=== PATIENT | female | born 1965 | race Caucasian/White ===

== ENCOUNTER → 2017-01-28 | Day surgery (SDC) | payer OTHER ==
[2017-01-17 08:38] VITALS: Ht 162.6 cm; Wt 70.5 kg
[~2017-01-28] VITALS: Ht 162.6 cm; Wt 70.5 kg
[~2017-01-28] MED LIST: CALC-51 PO; JNL12021 PO; LIDOCAINE HCL 2% 2 ML VIAL (20MG/ML) ONE; MIDAZOLAM HCL 1 MG/ML 2ML VIAL ONE; MULT-506 PO; PROPOFOL IV EMULSION 10 MG/ML 20 ML VIAL IV ONE; SODIUM CHLORIDE 0.9% 500ML 500 ML IV ONE; SPIR50TA2 PO
--- NOTE | 2017-01-28 15:30 | Endo History and Physical ---
History & Physical Date of Service: Jan 28, 2017. Chief Complaint: Screening Referring Physician: Lv Martinez History of Present Illness 51 yo CF who presents for screening colonoscopy. Past Surgical History Hx Cardiac Surgery: No Hx Internal Defibrillator: No Hx Pacemaker: No Hx Abdominal Surgery: No Hx of Implantable Prosthesis: No Hx Post-Op Nausea and Vomiting: No Hx Cancer Surgery: No Hx Thoracic Surgery: No Hx Orthopedic: No Hx Urinary Tract Surgery: No Family History Polyp Social History Smoking Status: Former Smoker Hx Substance Use: No Hx Alcohol Use: Yes (3-4 DRINKS A WEEK) Allergies Coded Allergies: NO KNOWN DRUG ALLERGIES (Verified Allergy, Unknown, ., 01/17/17) Uncoded Allergies: HONEYDEW (Adverse Reaction, Mild, SCRATCHY THROAT, 04/26/08) Current Medications Reported Home Medications Medications Dose Route/Sig Max Daily Dose Days Date Category Multivitamin (Multivitamins) Tab 1 Tab PO DAILY 01/17/17 Reported [Calcium] 1 Tab PO DAILY 01/17/17 Reported Aldactone (Spironolactone) 50 Mg Tab 50 Mg PO DAILY AFTERNOON 01/17/17 Reported Junel 11/09 (Ethinyl Estradiol/Norethindrone) 1 Ea Tab 1 Tab PO QAM 28 01/17/17 Reported Vital Signs Weight (Kilograms): 70.45 Height (Feet): 5 Height (Inches): 4 Date Time Temp Pulse Resp B/P Pulse Ox O2 Delivery O2 Flow Rate FiO2 01/28/17 14:17 36.4 75 16 137/70 99 Room Air Physical Exam General Appearance: WD/WN, no apparent distress Respiratory/Chest: Auscultation: breath sounds normal Cardiovascular: Heart Auscultation: RRR Abdomen: Bowel Sounds: normal Inspection & Palpation: soft, non-distended, no tenderness, guarding & rebound Assessment and Plan Assessment: 51 yo CF who presents for screening colonoscopy. Plan: Proceed with colonoscopy.
--- NOTE | 2017-01-28 16:17 | Anesthesiology Progress Note ---
Anesthesia Post Op Note Date & Time Jan 28, 2017 at 16:16 Vital Signs Vital Signs Past 12 Hours Date Time Temp Pulse Resp B/P Pulse Ox O2 Delivery O2 Flow Rate FiO2 01/28/17 16:02 80 20 104/50 100 Room Air 01/28/17 14:17 36.4 75 16 137/70 99 Room Air Notes Mental Status: alert / awake / arousable, participated in evaluation Pt Amnestic to Procedure: Yes Nausea / Vomiting: adequately controlled Pain: adequately controlled Airway Patency, RR, SpO2: stable & adequate BP & HR: stable & adequate Hydration State: stable & adequate Anesthetic Complications: no major complications apparent
--- NOTE | 2017-01-28 16:18 | Discharge Instructions ---
Endoscopy Patient Instructions Date / Procedure(s) Performed Jan 28, 2017. Colonoscopy Allergy Information Coded Allergies: NO KNOWN DRUG ALLERGIES (Verified Allergy, Unknown, ., 01/17/17) Uncoded Allergies: HONEYDEW (Adverse Reaction, Mild, SCRATCHY THROAT, 04/26/08) Discharge Date / Findings Jan 28, 2017. Colon polyps Internal hemorrhoids Medication Instructions OK to resume all medications today as prescribed Provider Instructions Activity Restrictions - No exercising or heavy lifting for 24 hours. - Do not drink alcohol the day of the procedure. - Do not drive a car or operate machinery until the day after the procedure. - Do not make any important decisions or sign important papers in 24 hours after the procedure. Following Day: - Return to full activity which may include returning to work/school. Diet Start your diet with liquids and light foods (jello, soup, juice, toast). Then eat your usual diet if not nauseated. Treatment For Common After Affects For mild abdominal pain, bloating, or excessive gas: - Rest - Eat lightly - Lie on right side Follow-Up Information Follow-up with Lv Martinez as scheduled Anesthesia Information What You Should Know You have had a procedure that required some medicine to reduce anxiety and discomfort. This treatment is called moderate sedation. After receiving the treatment, you may be sleepy, but you will be able to breathe on your own. The effects of the treatment may last for several hours. Follow these instructions along with Activity/Diet recommendations noted above: * Do NOT do anything where dizziness or clumsiness would be dangerous. * Rest quietly at home today, then you can be up and about tomorrow. * Have a responsible person stay with you the rest of today. * You may have had an I.V. today. If so, you may take the dressing off later today. Recommendations Call your doctor if: * Trouble breathing * Continuous vomiting for more than 24 hours * Temperature above 101 degrees * Severe abdominal pain or bloating * Pain not relieved by pain medicine ordered * There is increased drainage or redness from any incision * A large amount of rectal bleeding greater than 2-3 tablespoons. (If you had a polyp/s removed or have hemorrhoids, a small amount of blood - from the rectum is to be expected.) * You have any unanswered questions or concerns. IN THE EVENT OF A SERIOUS EMERGENCY, GO TO THE NEAREST EMERGENCY ROOM Your discharge instructions were prepared by provider Chris Lezama. Patient Instructions Signature Page Lorencata Damon Patient (or Guardian) Signature/Date: I have read and understand the instructions given to me by my caregivers. Caregiver/RN/Doctor Signature/Date: The above-named patient and/or guardian has received patient instructions on this date. + Original Patient Signature Page (only) stays with chart. Please make copy for patient.
--- NOTE | 2017-01-28 16:23 | GI REPORT ---
Procedure Date: 01/28/2017 3:22 PM Procedure: Colonoscopy Indications: Screening for colorectal malignant neoplasm Medicines: Monitored Anesthesia Care Complications: No immediate complications. Estimated Blood Loss: Estimated blood loss: none. Procedure: Pre-Anesthesia Assessment: - Prior to the procedure, a History and Physical was performed, and patient medications and allergies were reviewed. The patient's tolerance of previous anesthesia was also reviewed. The risks and benefits of the procedure and the sedation options and risks were discussed with the patient. All questions were answered, and informed consent was obtained. Prior Anticoagulants: The patient has taken no previous anticoagulant or antiplatelet agents. ASA Grade Assessment: I - A normal, healthy patient. After reviewing the risks and benefits, the patient was deemed in satisfactory condition to undergo the procedure. After I obtained informed consent, the scope was passed under direct vision. Throughout the procedure, the patient's blood pressure, pulse, and oxygen saturations were monitored continuously. The scope was introduced through the anus and advanced to the terminal ileum. The colonoscopy was performed without difficulty. The patient tolerated the procedure well. The quality of the bowel preparation was good. The terminal ileum, ileocecal valve, appendiceal orifice, and rectum were photographed. Findings: A 3 mm polyp was found in the transverse colon. The polyp was sessile. The polyp was removed with a cold biopsy forceps. Resection and retrieval were complete. A 15 mm polyp was found in the transverse colon. The polyp was pedunculated. The polyp was removed with a hot snare. Resection and retrieval were complete. Non-bleeding internal hemorrhoids were found during retroflexion. The hemorrhoids were small. Impression: - One 3 mm polyp in the transverse colon, removed with a cold biopsy forceps. Resected and retrieved. - One 15 mm polyp in the transverse colon, removed with a hot snare. Resected and retrieved. - Non-bleeding internal hemorrhoids. Recommendation: - Resume previous diet. - Continue present medications. - Repeat colonoscopy for surveillance based on pathology results. - Return to primary care physician as previously scheduled. Chris Lezama DO 01/28/2017 4:21:51 PM This report has been signed electronically. Note Initiated On: 01/28/2017 3:22 PM I attest to the content of the Intraoperative Record and orders documented therein, exceptions below
[2017-01-28 16:38] VITALS: BP 131/69; PULSE 69; O2SAT 100
== END | disposition home or self-care (01) ==
LOC: C.GI 13:54
PROVIDERS: ATTEND Internal Medicine
DX: Z12.11 Encounter for screening for malignant neoplasm of colon (principal); D12.3 Benign neoplasm of transverse colon; K64.8 Other hemorrhoids; M19.90 Unspecified osteoarthritis, unspecified site; Z91.018 Allergy to other foods; Z68.26 Body mass index [BMI] 26.0-26.9, adult; Z87.891 Personal history of nicotine dependence; Z83.71 Family history of colonic polyps

== ENCOUNTER → 2017-03-04 | Outpatient (CLI) | payer OTHER ==
[~2017-03-04] MED LIST changes: -LIDOCAINE HCL 2% 2 ML VIAL (20MG/ML) ONE; -MIDAZOLAM HCL 1 MG/ML 2ML VIAL ONE; -PROPOFOL IV EMULSION 10 MG/ML 20 ML VIAL IV ONE; -SODIUM CHLORIDE 0.9% 500ML 500 ML IV ONE
== END | disposition home or self-care (01) ==
LOC: C.LABBC 10:13
PROVIDERS: ATTEND Physician Assistant
DX: N95.1 Menopausal and female climacteric states (principal)

== ENCOUNTER → 2017-05-31 | Outpatient (CLI) | payer OTHER ==
--- NOTE | 2017-05-31 15:45 | MAMMOGRAPHY REPORT ---
BILATERAL DIGITAL SCREENING MAMMOGRAM TOMOSYNTHESIS WITH CAD: 05/31/2017 CLINICAL HISTORY: Routine screening. Patient has no complaints. TECHNIQUE: Breast tomosynthesis in addition to standard 2D mammography was performed. Current study was also evaluated with a Computer Aided Detection (CAD) system. COMPARISON: Comparison is made to exams dated: 05/07/2016 mammogram, 12/24/2013 mammogram, 12/23/2012 [facility], 09/19/2011 mammogram, 06/20/2010 mammogram, and 06/17/2009 mammo gram. BREAST COMPOSITION: The tissue of both breasts is heterogeneously dense, which may obscure small mas ses. FINDINGS: No suspicious masses, calcifications, or areas of architectural distortion are noted in ei ther breast. There has been no significant interval change compared to prior exams. Bilateral benign -appearing calcifications are not significantly changed. IMPRESSION: ACR BI-RADS CATEGORY 2: BENIGN There is no mammographic evidence of malignancy. A 1 year screening mammogram is recommended. The pa tient will receive written notification of the results. Approximately 10% of breast cancers are not detected with mammography. A negative mammographic report should not delay biopsy if a clinically suggestive mass is present. Anahi Dillon M.D. /:05/31/2017 13:41:33 [employer]: Zuri ESCOBAR)([place])(), [facility] letter sent: Normal 1/2 BI-RADS Code: ACR BI-RADS Category 2: Benign
== END | disposition home or self-care (01) ==
LOC: C.MAMM 12:30
PROVIDERS: ATTEND Obstetrics & Gynecology
DX: Z12.31 Encounter for screening mammogram for malignant neoplasm of breast (principal)

== ENCOUNTER → 2017-06-19 | Outpatient (CLI) | payer OTHER ==
[2017-06-19 11:07] LABS: BASO % 0.3 %; BASO ABS # 0.02 K/uL (0-0.2); COMPLETE YES; EOS % 1.1 %; IG% 0.3 %; LYMPH % 22.4 %; LYMPH ABS # 1.65 K/uL (1.2-3.4); MEAN CELL VOLUME 93.8 fL (80-100); MEAN CORPUSCULAR HEMOGLOBIN 32.7 pg (25-34); MEAN CORPUSCULAR HGB CONC 34.9 g/dl (32-36); MEAN PLATELET VOLUME 11.3 fL (7.4-10.4); MONO % 10.1 %; NEUT % 65.8 %; PLATELET COUNT 296 K/uL (130-400); RED BLOOD COUNT 4.37 M/uL (4.2-5.4); WHITE BLOOD COUNT 7.36 K/uL (4.8-10.8)
== END | disposition home or self-care (01) ==
LOC: C.LABBC 07:53
PROVIDERS: ATTEND Internal Medicine
DX: R53.83 Other fatigue (principal)

== ENCOUNTER 2018-01-21 23:24 | Emergency (ER) | payer OTHER ==
[~2018-01-21] VITALS: Ht 162.6 cm; Wt 70.9 kg
[2018-01-21 23:27] VITALS: TEMP 36.8; Ht 162.6 cm; Wt 70.9 kg
--- NOTE | 2018-01-21 23:46 | EMERGENCY ROOM VISIT NOTE ---
History Report prepared by Alfonso: Anuradha Bronson Under the Supervision of: Dr. Anu Maza D.O. First contact with patient: 23:30 Chief Complaint: CONSTIPATION Stated Complaint: COMPACTED CONSTIPATION History of Present Illness The patient is a 52 year old female who presents to the Emergency Room with complaints of persistent constipation that started a few hours ago. The patient rates her pain a 5/10 in severity. She notes she spent 3 hours in the bathroom and states "I feel like there is a very large stool in my rectum". She states her last bowel movement was 3 days ago. She notes her bowel movements tend to be irregular. She reports her bowel movements have been more difficult over the past month. She states she has been taking a stool softener but it has not helped. She notes she has small hemorrhoids but no bleeding. She states she has been sitting a lot more recently at work and does not get a lot of exercise otherwise. She denies any abdominal pain. She notes she has nausea, chills, and bloating. She denies any family history of bowel disease. She notes she has not had prior surgery on her abdomen. Source of History: patient Onset: a few hours ago Position: other (rectum) Symptom Intensity: 5/10 Timing: other (persistent) Associated Symptoms: + chills, + nausea, No abdominal pain Note: Additional symptoms: bloating. Review of Systems See HPI for pertinent positives & negatives. A total of 10 systems reviewed and were otherwise negative. Past Medical & Surgical No pertinent past medical or surgical history. Family History No pertinent family history Social History Smoking Status: Never Smoker Marital Status: Housing Status: lives with significant other Occupation Status: employed Current/Historical Medications Scheduled Spironolactone (Aldactone), 50 MG PO DAILY AFTERNOON Venlafaxine Hcl (Effexor), 75 MG PO DAILY Allergies Coded Allergies: NO KNOWN DRUG ALLERGIES (Verified Allergy, Unknown, ., 01/22/18) Uncoded Allergies: HONEYDEW (Adverse Reaction, Mild, SCRATCHY THROAT, 04/26/08) Physical Exam Vital Signs Date Time Temp Pulse Resp B/P (MAP) Pulse Ox O2 Delivery O2 Flow Rate FiO2 01/22/18 01:40 74 18 123/53 100 Room Air 01/21/18 23:27 36.8 77 18 134/67 100 Room Air Physical Exam GENERAL: alert, well appearing, well nourished, no distress, non-toxic EYE EXAM: normal conjunctiva, PERRL and EOM's grossly intact OROPHARYNX: no exudate, no erythema, lips, buccal mucosa, and tongue normal and mucous membranes are moist NECK: supple, no nuchal rigidity, no adenopathy, non-tender LUNGS: Clear to auscultation. Normal chest wall mechanics HEART: no murmurs, S1 normal and S2 normal ABDOMEN: abdomen soft, generalized discomfort, normo-active bowel sounds, no masses, no rebound or guarding. BACK: Back is symmetrical on inspection and there is no deformity, no midline tenderness, no CVA tenderness. RECTAL: External hemorrhoids noted, no bleeding. No anal fissure. Hard stool palpable in rectal vault, however patient unable to be disimpacted. SKIN: no rashes and no bruising UPPER EXTREMITIES: upper extremities are grossly normal. LOWER EXTREMITIES: No pitting edema. NEURO EXAM: Normal sensorium,normal speech, no [gross] weakness of arms, no [ gross] weakness of legs. Medical Decision & Procedures ER Provider Diagnostic Interpretation: Radiology results have been interpreted by the radiologist and reviewed by me. KUB: 1 view No SBO, moderate stool burden noted. ED Course 2330: The patient was evaluated in room B12B. A complete history and physical exam was performed. 0055: Rechecked patient and she is feeling much better. She had a large bowel movement. 0130: Upon reevaluation, the patient is feeling better. I discussed the findings and the treatment plan with the patient. She verbalizes agreement and understanding. The patient is ready for discharge. Medical Decision Differential diagnosis: Etiologies such as functional constipation, impaction, obstruction, volvulus, metabolic abnormality, infection, neurologic, as well as others were entertained. Pt well appearing here with complaints consistent with constipation. No fevers , no vomiting. Pt reported markedly improvement here following successful enema. Discussed with pt ways to prevent constipation. Discussed diet/ hydration. Pt recently started on venlafaxine which lists constipation as a possible adr. Discussed with pt sx to watch/return for, she verbalized understanding and was agreeable. Did not feel pt needed additional imaging labs based on presentation and improvement following enema tonight. Pt well appearing at MT, VS stable throughout. I do not suspect additional acute GI pathology. Medication Reconcilliation Current Medication List: was personally reviewed by me Blood Pressure Screening Patient's blood pressure: Elevated blood pressure Blood pressure disposition: Elevated BP felt to be situational Impression Primary Impression: Constipation Scribe Attestation The scribe's documentation has been prepared under my direction and personally reviewed by me in its entirety. I confirm that the note above accurately reflects all work, treatment, procedures, and medical decision making performed by me. Departure Information Dispostion Home / Self-Care Referrals No Doctor, Assigned (PCP) Patient Instructions My [facility] Additional Instructions Please drink plenty of water and take a stool softener daily. You may also consider using MiraLAX daily as well to help have more regular bowel movements. Please make sure you're getting adequate fiber in your diet, and avoid any other foods that could potentially be constipating to you if you have previously identified these. If you have any recurrent episodes of worsening abdominal pain, noticed black or bloody stools, develop nausea or vomiting, fevers or chills, or you've any other new concerns, please return the emergency room. Problem Qualifiers Primary Impression: Constipation Constipation type: unspecified constipation type Qualified Codes: K59.00 - Constipation, unspecified
[2018-01-22] MEDS ORDERED: EFF75 PO (00:02)
[2018-01-22 01:40] VITALS: BP 123/53; PULSE 74; O2SAT 100
--- NOTE | 2018-01-22 06:39 | DIAGNOSTIC IMAGING REPORT ---
KUB CLINICAL HISTORY: Constipation. COMPARISON STUDY: None. FINDINGS: Pelvic calcifications statistically reflect phleboliths. There is a moderate amount of stool within the colon. There is minimal stool within the rectum. There is no evidence for a bowel obstruction. IMPRESSION: 1. No evidence for a bowel obstruction. 2. Minimal stool within the rectum with moderate stool within the colon. Electronically signed by: Chuy Javed M.D. 01/22/2018 6:38 AM Dictated Date/Time: 01/22/2018 6:37 AM
== END 2018-01-22 01:48 | disposition home or self-care (01) ==
LOC: C.EDB 23:25
DX: K59.00 Constipation, unspecified (principal); K64.4 Residual hemorrhoidal skin tags; Z91.018 Allergy to other foods

== ENCOUNTER → 2018-06-03 | Outpatient (CLI) | payer OTHER ==
[~2018-06-03] MED LIST changes: -CALC-51 PO; +EFF75 PO; -JNL12021 PO; -MULT-506 PO
--- NOTE | 2018-06-04 13:50 | MAMMOGRAPHY REPORT ---
BILATERAL DIGITAL SCREENING MAMMOGRAM TOMOSYNTHESIS WITH CAD: 06/03/2018 CLINICAL HISTORY: Routine screening. TECHNIQUE: The study was acquired using full field digital technology and interpreted from soft copy. Breast tomosynthesis in addition to standard 2D mammography was performed. Current study was also ev aluated with a Computer Aided Detection (CAD) system. COMPARISON: Comparison is made to exams dated: 05/31/2017 mammogram, 05/07/2016 mammogram, 12/24/2013 ma mmogram, 12/23/2012 mammogram - [facility], 09/19/2011 mammogram, and 06/20/2010 mammo gram. Dictating markedly low there is a partially circumscribed and obscured 10 mm mass in the uppe r outer posterior left breast BREAST COMPOSITION: The tissue of both breasts is extremely dense, which lowers the sensitivity of ma mmography. FINDINGS: There is a newly visualized 10 mm partially circumscribed and obscured mass in the upper ou ter posterior left breast, for which additional targeted ultrasound and possible additional mammograp hic views are recommended. There are stable diffuse punctate calcifications throughout the left greater than right breast. No ot her suspicious mass, architectural distortion or cluster of microcalcifications is seen. IMPRESSION: ACR BI-RADS CATEGORY 0: INCOMPLETE EVALUATION: NEED ADDITIONAL IMAGING EVALUATION The newly visualized 10 mm partially circumscribed and obscured mass in the upper outer left breast n eeds additional evaluation. The patient will be called to schedule an appointment. Some breast cancers are not detected with mammography. A negative mammographic report should not janna y biopsy if a clinically suggestive mass is present. Rody Bolden M.D. ay/:06/03/2018 15:06:19 Terminal Carman: RT Checo(R)(M), [facility] letter sent: Addl Imaging 0 BI-RADS Code: ACR BI-RADS Category 0: Incomplete Evaluation: Need Additional Imaging Evaluation
== END | disposition home or self-care (01) ==
LOC: C.MAMM 09:51
PROVIDERS: ATTEND Obstetrics & Gynecology
DX: Z12.31 Encounter for screening mammogram for malignant neoplasm of breast (principal); N63.21 Unspecified lump in the left breast, upper outer quadrant

== ENCOUNTER → 2018-06-13 | Outpatient (CLI) | payer OTHER ==
--- NOTE | 2018-06-13 14:29 | MAMMOGRAPHY REPORT ---
ULTRASOUND OF LEFT BREAST: 06/13/2018 CLINICAL HISTORY: Callback from screening mammogram for 10 mm partially circumscribed mass in the lef t upper outer quadrant. COMPARISON: Comparison is made to exams dated: 06/03/2018 mammogram, 05/31/2017 mammogram, 05/07/2016 m ammogram, 12/24/2013 mammogram, 12/23/2012 mammogram - [facility], and 09/19/2011 mammo gram. Findings: Real-time, high-resolution targeted ultrasound was performed of the left breast in the [place] on of the mammographic mass. In the left breast at 1:00, approximately 2 cm from the nipple, there i s a round circumscribed anechoic mass with posterior acoustic enhancement, which measures 9 x 8 x 10 mm. This corresponds with the mammographic mass and is consistent with a benign simple cyst. No santa picious sonographic abnormality is evident. IMPRESSION: ACR BI-RADS CATEGORY 2: BENIGN Benign 10 mm simple cyst in the left 1:00 breast on ultrasound, which corresponds with the mammograph ic mass. There is no sonographic evidence of malignancy. A 1 year screening mammogram is recommended.(06/14/2019) the patient was verbally notified of the res ults. Anahi Dillon M.D. ah/:06/13/2018 10:28:13 Smoking Tobacco Packing Machine Hand: RT Rogelio(Rito)(M), [facility] letter sent: Normal 1/2 BI-RADS Code: ACR BI-RADS Category 2: Benign
== END | disposition home or self-care (01) ==
LOC: C.MAMM 10:09
PROVIDERS: ATTEND Obstetrics & Gynecology
DX: N60.02 Solitary cyst of left breast (principal)